=== PATIENT | male | born 1995 | race Asian ===

== ENCOUNTER 2022-12-03 14:22 | Outpatient (RCR) | payer OTHER, SELFPAY | END 2023-04-15 13:32 | disposition home or self-care (01) | LOC: HO.PT 14:22 | PROVIDERS: PCP Family Medicine; Visit Provider Surgery | DX: K62.9 Disease of anus and rectum, unspecified (principal) ==

== ENCOUNTER 2023-12-23 13:00 | Outpatient (RCR) | payer OTHER, SELFPAY | END 2023-12-23 14:32 | disposition home or self-care (01) | LOC: HO.PT 13:00 | PROVIDERS: PCP Family Medicine; Visit Provider Internal Medicine Cardiovascular Disease | DX: M99.05 Segmental and somatic dysfunction of pelvic region (principal) | CPT/HCPCS: 97110; 97112; 97140; 97161; 97530 ==

== ENCOUNTER 2024-07-25 06:35 | Outpatient (REF) | payer OTHER, SELFPAY ==
--- NOTE | ~2024-07-25 | US_ITS ---
EXAMINATION: US RETROPERITONEAL COMPLETE (RENAL) CLINICAL INFORMATION: Abdominal pain. COMPARISON: None available. TECHNIQUE: Real-time imaging of the kidneys and bladder. FINDINGS: RIGHT KIDNEY: 11.2 x 5 x 5.3 cm (SAG x AP x TRV). The kidney is normal in size, contour, and echogenicity. Renal cortical thickness is normal. No calculi or focal parenchymal lesions. No hydronephrosis. LEFT KIDNEY: 12.4 x 6 x 5.3 cm (SAG x AP x TRV). The kidney is normal in size, contour, and echogenicity. Renal cortical thickness is normal. No calculi or focal parenchymal lesions. No hydronephrosis. BLADDER: Well distended and normal. Bilateral ureteral jets are demonstrated. Prevoid bladder volume is 644 mL. Postvoid bladder volume is 21 mL. US/US retroperitoneal comp IMPRESSION: No acute sonographic abnormalities. Electronically signed by: Marilia De Dios MD 07/25/2024 03:06 PM EDT
== END 2024-07-25 06:36 | disposition home or self-care (01) ==
LOC: HO.UMASIMG 06:35
PROVIDERS: Visit Provider Emergency Medicine
DX: R10.9 Unspecified abdominal pain (principal)
CPT/HCPCS: 76770